=== PATIENT | female | born 1950 | race Caucasian/White ===

== ENCOUNTER 2020-02-20 04:57 | Day surgery (SDC) | payer BC, OTHER ==
[2020-02-17 17:33] VITALS: BMI 29.2
[2020-02-20] MEDS ORDERED: MIDAZOLAM HCL 2 MG/2 ML SINGLE DOSE VIAL ONE (08:36)
[2020-02-20] MEDS ORDERED: PROPOFOL 20 ML ONE (08:36)
[2020-02-20] MEDS ORDERED: IBUPROFEN 400 MG TABLET (FP) PO PRN (09:28)
[2020-02-20] MEDS ORDERED: ACETAMINOPHEN 325 MG TABLET (FP) PO PRN (09:28)
--- NOTE | 2020-02-20 09:28 | HP ---
History & Physical Update - History History: No Change - Physical Physical: No Change - Assessment Assessment: No Change - Plan Plan: No Change
[2020-02-20] MEDS ORDERED: ceFAZolin SODIUM 1 GM VIAL ONE (10:24)
[2020-02-20] MEDS ORDERED: DEXAMETHASONE SOD PHOSPHATE 4 MG/1 ML VIAL ONE (10:24)
[2020-02-20] MEDS ORDERED: KETOROLAC TROMETHAMINE 30 MG/1 ML VIAL ONE (10:25)
[2020-02-20 13:13] VITALS: BP 139/66; PULSE 64; TEMP 97
--- NOTE | 2020-02-20 16:07 | EKG ---
Test Reason : Blood Pressure : / mmHG Vent. Rate : 062 BPM Atrial Rate : 062 BPM P-R Int : 156 ms QRS Dur : 074 ms QT Int : 398 ms P-R-T Axes : 020 -07 026 degrees QTc Int : 403 ms NORMAL SINUS RHYTHM POSSIBLE INFERIOR INFARCT (CITED ON OR BEFORE 25-SEP-2011) ABNORMAL ECG WHEN COMPARED WITH ECG OF 17-NOV-2019 15:33, NO SIGNIFICANT CHANGE WAS FOUND Confirmed by PORTIA HOPPER, ROBLES ([id number]) on 02/20/2020 4:07:31 PM Referred By: Confirmed By:ROBLES PEARCE MD
--- NOTE | 2020-02-22 11:06 | OP ---
DATE OF OPERATION: 02/20/2020 PREOPERATIVE DIAGNOSIS: Cervical polyp, postmenopausal bleeding. OPERATION: Hysteroscopic myomectomy and lysis of adhesions. POSTOPERATIVE DIAGNOSIS: Cervical polyp and uterine adhesions. SURGEON: Chanelle Brush MD GLASS LAMINATING OPERATOR: No assistant attorney general. ANESTHESIOLOGIST: Venancio Patel MD ANESTHESIA: General. PROCEDURE: Patient was taken to the operating room, placed in the dorsal lithotomy position, prepped and draped in the usual sterile fashion. Speculum was placed in the vagina. Anterior lip of the cervix was grasped with single-tooth tenaculum. Cervix was then dilated to accommodate the operative hysteroscope. Visualization revealed uterine adhesions. Lysis of adhesions was done. Cervical polyp was then removed using the operative hysteroscope. Suction D&C was then performed. All instruments were then removed. Patient had tolerated procedure well. Estimated blood loss was 5 mL. CHANELLE BRUSH M.D. [id number]
--- NOTE | 2020-02-22 18:29 | PATH ---
Surgical Pathology Report Patient Name: [facility]. Rec. #: [id number] /Age/Gender: 1950 (Age: 69) / F Account: [id number] Location: [facility] SURGICAL Taken: 02/20/2020 Received: 02/20/2020 Reported: 02/22/2020 Physicians: Chanelle Brush M.D. Specimen(s) Received A: CERVICAL POLYP AND LYSIS OF ADHESIONS B: UTERINE CONTENTS Clinical History Cervical polyp, postmenopausal bleeding Final Diagnosis A. CERVICAL POLYP AND LYSIS OF ADHESIONS: FRAGMENTS OF ENDOCERVICAL POLYP. B. UTERINE CONTENTS, MYOMECTOMY, SUCTION D&C: FEW FRAGMENTS OF INACTIVE ENDOMETRIUM. SMOOTH MUSCLE BUNDLES PRESENT, MAY REPRESENT A SUBMUCOSAL LEIOMYOMA IN THE PROPER CLINICAL SETTING. SEPARATE FRAGMENTS OF UNREMARKABLE CERVICAL SQUAMOUS EPITHELIUM. Electronically Signed Charlie Pollard M.D. Gross Description A. Received in formalin labeled "cervical polyp and lysis of adhesions," is a 1.3 x 0.9 x 0.3 cm aggregate of ceja-pink soft tissue fragments admixed with mucus. The formalin is filtered and the specimen is entirely submitted in one cassette. B. Received in formalin labeled "uterine contents," is a 2.5 x 2.0 x 0.3 cm aggregate of ceja-pink soft tissue fragments admixed with mucus. The formalin is filtered and the specimen is entirely submitted in one cassette. DL/02/20/2020 saudi/02/20/2020
== END 2020-02-20 13:05 | disposition home or self-care (01) ==
LOC: JASU-SURG 04:57
PROVIDERS: ATTEND Obstetrics & Gynecology
PROC: 0UDB7ZX Extraction of Endometrium, Via Natural or Artificial Opening, Diagnostic (ICD-10-PCS; 2020-02-20)
PROC: 0UJD8ZZ Inspection of Uterus and Cervix, Via Natural or Artificial Opening Endoscopic (ICD-10-PCS; 2020-02-20)
PROC: 0UN98ZZ Release Uterus, Via Natural or Artificial Opening Endoscopic (ICD-10-PCS; principal; 2020-02-20 09:30)
PROC: 0UBC7ZX Excision of Cervix, Via Natural or Artificial Opening, Diagnostic (ICD-10-PCS; 2020-02-20 09:30)
DX: N95.0 Postmenopausal bleeding (principal); N85.6 Intrauterine synechiae; N84.1 Polyp of cervix uteri
CPT/HCPCS: 86850; 86900; 86901; 86922; 88305-TC; 93005; 93010; 94760